=== PATIENT | male | born 1985 ===

== ENCOUNTER 2018-01-21 09:06 | Outpatient (CLI) | payer OTHER ==
[~2018-01-21] VITALS: Ht 172.7 cm; Wt 93.0 kg
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
--- NOTE | 2018-01-21 09:16 | Pre-Procedure Note/Attestation ---
Pre-Procedure Note/Attestation Complete Prior to Procedure Planned Procedure: bilateral Procedure Narrative: L2-L3, L3-L4, L4-L5, L5-S1 intra articular facet injection under fluoroscopic guidance. Indications for Procedure Pre-Operative Diagnosis: Lumbosacral spondylolisthesis Attestation I attest that I discussed the nature of the procedure; its benefits; risks and complications; and alternatives (and the risks and benefits of such alternatives ), prior to the procedure, with the patient (or the patient's legal account retention representative). I attest that, if there was a reasonable possibility of needing a blood transfusion, the patient (or the patient's legal account retention representative) was given the [place] [employer] standardized written summary, pursuant to the Keshav Sebastian Blood Safety Act ([place] Health and Safety Code # 1645, as amended). I attest that I re-evaluated the patient just prior to the surgery and that there has been no change in the patient's H&P, except as documented below: Dede Aranda MD Jan 21, 2018 09:16
[2018-01-21 09:25] VITALS: BP 133/83
[2018-01-21] MEDS ORDERED: Lidocaine 1% Plain 30 ml INJ ONE ×2 (09:28→09:30)
[2018-01-21] MEDS ORDERED: Depo-Medrol 80mg Vial ONE (09:28)
[2018-01-21] MEDS ORDERED: Depo-Medrol 80mg Vial IARTIC ONE (09:30)
[2018-01-21] MEDS ORDERED: Isovue-M 300 15ml INJ ONE (09:30)
[2018-01-21 10:10] VITALS: BP 135/87
--- NOTE | 2018-01-21 10:12 | Brief Operative Note ---
Immediate Post Operative Note Operative Note Chief Complaint: Lower back pain Pre-op Diagnosis: Lumbosacral spondylolisthesis Procedure: Bilateral L2-L3, L3-L4, L4-L5, L5-S1 intra-articular facet injection under fluoroscopic guidance. Post-op Diagnosis: Same Post-op Diagnosis: same as pre-op Findings: consistent w/pre-op dx studies Surgeon: Dede Aranda MD Cpa Tax: none Additional Surgeons: none Anesthesiologist: none Anesthesia: local Specimen: none Complications: none Condition: stable Fluids: none Estimated Blood Loss: none Drains: none Packing: none Tourniquet time: 0 Implant(s) used?: Dede Donahue MD Jan 21, 2018 10:12
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
--- NOTE | 2018-01-21 10:22 | Discharge Summary ---
Discharge Summary Hospital Course Date of Admission 01/21/2018 Date of Discharge 01/21/2018 Admitting Diagnosis Lumbosacral spondylosis Reason for Hospitalization: facet injections for lower back pain HPI Mervin Montes is a 32 year old male who was admitted on for Spondylolisthesis Lumbar Region Consultations none Procedures Bilateral L2-L3, L3-L4, L4-L5, L5-S1 intraarticular facet injections after fluoroscopic guidance. Hospital Course short stay Discharge Condition Upon Discharge: stable Discharge Disposition Patient was discharged to home. Discharge Diagnoses: (1) Spondylolisthesis of lumbar region Discharge Instructions Discharge Instructions Follow up with: Dr. Dede Aranda Diet: regular Activity: okay to shower Special Instructions Do not drive for the next 8 hours For Surgical Patients Dressing Care: may change Contact your physician for: bleeding, pain, tenderness, redness, swelling, yellowish discharge in the op. site Dede Aranda MD Jan 21, 2018 10:22
== END 2018-01-21 10:25 | disposition home or self-care (01) ==
LOC: RAD 09:06
DX: M43.17 Spondylolisthesis, lumbosacral region (principal)
CPT/HCPCS: 64493; 76000; J1040; J2001